=== PATIENT | female | born 1980 | race Caucasian/White ===

== ENCOUNTER 2022-05-26 16:35 | Inpatient (IN) ==
--- NOTE | 2022-05-26 17:43 | History & Physical Report ---
Date of Service May 26, 2022 Assessment & Plan (1) Non-reactive NST (non-stress test): Plan: Patient is a 41-year-old -0-2-0 at 38 weeks and 1 day gestation who was sent from office due to nonreactive NST, followed by BPP of 6 out of 10, Vital signs stable afebrile, heart rate is reassuring now with reactive NST with good variability and accelerations, We discussed options of induction of labor at term tonight versus prolonged monitoring and repeating BPP. Patient desires prolonged monitoring and repeat BP tonight and then go home if everything is reassuring. All questions were answered. (2) Advanced maternal age (AMA), 40 years or greater: (3) Gestational diabetes requiring insulin: History of Present Illness Primary Care Provider: Roland Anderson DO Patient is a 41-year-old -0-2-0 at 38 weeks and 1 day of gestation who was in the office for NST for high risk due to advanced maternal age and GDM A2, on insulin. NST was not reactive, with normal baseline, moderate variability, no decelerations but no accelerations meeting the criteria for reactivity. She then had ultrasound at the office for BPP, and it was 6 out of 8. And she was sent here. She states baby was not moving when they were doing NST and BPP in the office but now baby is very active moving and kicking. She denies contractions, leakage of fluid, vaginal bleeding. She was scheduled for induction of labor at 39 weeks. Since she has been here her NST is reactive and reassuring with normal baseline, accelerations present, moderate variability and no decelerations. I offered her induction of labor tonight but she is asking for other options. We discussed prolonged monitoring, given her diet and repeating BPP. If BPP is normal, reassuring then recommended to come back for NST in 2 days rather than waiting until office opens until May 30. Patient likes to do that. All questions were answered. Allergies Allergy/AdvReac Type Severity Reaction Status Date / Time lamotrigine [From Lamictal] Allergy Mild Hives Verified 07/26/20 18:12 [id number] Allergy Unknown Unknown Uncoded 07/26/20 18:12 Home Medications Medication Instructions Recorded Confirmed Type vit no.95-ferrous 1 tab PO DAILY 07/26/20 05/26/22 History fumarate 28 mg-folic acid 800 mcg tablet () sertraline 25 mg tablet 50 mg PO QAM 07/26/20 05/26/22 History omeprazole 20 mg capsule,delayed 20 mg PO DAILY 05/26/22 05/26/22 History release polyethylene glycol 3350 17 gram 17 g PO DAILY 05/26/22 05/26/22 History oral powder packet (Miralax) Patient History Medical History Bipolar 2 disorder Hx LEEP (loop electrosurgical excision procedure), cervix, Surgical History H/O colonoscopy H/O colposcopy with cervical biopsy H/O hemorrhoidectomy H/O myringotomy Hx of LASIK [place] teeth removed Family History Brother Diabetes Family history of GERD Father Diabetes Depression Grandfather (Maternal) Hypertension Sister Thyroid disorder Mother Anxiety disorder Melanoma FH: kidney cancer Social History Smoking Status: Never smoker Hx Alcohol Use: No Hx Substance Use: No Preferred Language: [place] Citizen Communication Ability: Effective 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 No adilia nor heart rate were seen. Review of Systems as per Subjective / HPI Physical Exam Genitourinary: normal external appearance OB Exam Abdomen: + vertex Manual OB Exam: + cervical dilation (0), + cervical effacement 50% and + station high (Ballotable head) OB Exam Monitor Tracing: + external uterine monitor used and + category I Results & Data ([facility]) Vital Signs (Past 12 Hours) Vital Signs Temp Pulse Resp BP 05/26/22 17:00 98 H 110/75 05/26/22 16:56 37.2 C 98 H 18 110/75
[2022-05-26] MEDS ORDERED: OXYTOCIN 30 UNITS/500 ML BAG IV PRN (19:13)
[2022-05-26] MEDS ORDERED: LIDOCAINE 1% LOCAL 20 ML VIAL INFIL PRN (19:13)
--- NOTE | 2022-05-26 19:17 | Obstetrical Progress Note ---
Date of Service May 26, 2022 Subjective Patient is reevaluated. Now she states baby is not moving much. Used to feel kicks but she does not feel any more. She says this has been going on for the last 2 to 3 days. Baby moved more when she came to here but then again slowed down. She has been waiting for [facility] for BPP but they have been busy in the ER and unable to come. I performed a bedside BPP which showed vertex presentation, anterior placenta, amniotic fluid volume normal, multiple breathing seen, 1 time of body flexion but no extremity movements. BPP is still borderline. After discussion of high risk and above findings recommended induction of labor now at term. Patient agrees with plan. Discussed about induction with cervical ripening with Cervidil and monitoring and she understands all. All questions were answered. Results & Data ([facility]) Vital Signs (Past 12 Hours) Vital Signs Temp Pulse Resp BP 05/26/22 18:56 88 116/72 05/26/22 17:00 98 H 110/75 05/26/22 16:56 37.2 C 98 H 18 110/75
--- NOTE | 2022-05-26 19:28 | Obstetrical Progress Note ---
Date of Service May 26, 2022 Subjective Patient states her disability will not start until May 28. If she has baby before that she will not be paid for leave. She does not want to go home she wants to be monitored but she is asking to start induction tomorrow instead of tonight. heart rate is category 1 with normal baseline, good accelerations, moderate variability, no decelerations. No contractions on the monitor. Patient has no complaints and feels well. We discussed the risks and benefits and after long discussion decided for observation overnight with monitoring and start induction of labor tomorrow. All questions were answered. Results & Data ([facility]) Vital Signs (Past 12 Hours) Vital Signs Temp Pulse Resp BP 05/26/22 18:56 88 116/72 05/26/22 17:00 98 H 110/75 05/26/22 16:56 37.2 C 98 H 18 110/75
[2022-05-26] MEDS ORDERED: DINOPROSTONE 10 MG INSERT PV ONE (19:30)
[2022-05-26 19:58] LABS: Hematocrit (blood only) 30.9 % (34.1-44.9); Hemoglobin 10.7 g/dl (12.0-16.0); Mean Corpuscular Hemoglobin 31.8 pg (25.0-34.0); Mean Corpuscular Hgb Conc 34.6 g/dL (32.0-36.0); Mean Corpuscular Volume 91.7 fL (80.0-100.0); Mean Platelet Volume 10.4 fL (9.4-12.3); Platelet Count 208 K/uL (130-400); RDW Coefficient of Variation 13.8 % (11.5-14.5); RDW Standard Deviation 46.5 fL (36.4-46.3); Red Blood Count 3.37 M/uL (3.93-5.22)
[2022-05-26 20:31] LABS: Albumin Globulin Ratio 1.1 (0.9-2); Albumin Level 3.3 gm/dl (3.4-5.0); BUN Creatinine Ratio 17.3 (10-20); Bilirubin,Total 0.3 mg/dl (0.2-1.0); Creatinine Clr Calc Pharmacy 60.2 ml/min; Est GFR (African American) 61.1 ml/min; Est GFR (Non-African American) 52.7 ml/min; Globulin 3.1 gm/dl (2.5-4.0); Potassium 3.8 mmol/L (3.5-5.1); Total Protein 6.4 gm/dl (6.0-8.3)
--- NOTE | 2022-05-26 20:33 | Ultrasound Report ---
US OB BPP wo NST single CLINICAL HISTORY: Non reactive nonstress test, BPP 6/8 in office COMPARISON STUDY: Obstetrical ultrasound 07/26/2020. FINDINGS: The fetus is in a cephalic presentation and demonstrates a heart rate of 159 BPM. Nor mal amniotic fluid adnexa of 11.54 cm. There is an anterior placenta noted. breathing, movement , and tone was identified during the examination. The ultrasound age is approximately 36 weeks and 3 days. IMPRESSION: Biophysical profile score is 8 out of 8. heart rate is 159 BPM. ACT 112: Negative or not required by law. Electronically signed by: Tobias Peñaloza M.D. 05/26/2022 8:31 PM
[2022-05-26] MEDS: LACTATED RINGER'S 1,000 ML IV PRN (20:34)
[2022-05-26] MEDS: LANTUS PER UNIT CHARGE SQ SCH (21:17)
[2022-05-27] MEDS: PANTOprazole 40 MG TAB PO SCH (07:50)
[2022-05-27] MEDS: SERTRALINE HCL 50 MG TABLET PO SCH (07:50)
[2022-05-27] MEDS: POLYETHYLENE (MIRALAX) 17 GM PACK PO SCH (07:50)
[2022-05-27] MEDS: FERROUS SULFATE 325 MG TAB PO SCH ×4 (07:50→18:28)
[2022-05-27] MEDS: LANTUS PER UNIT CHARGE SQ SCH ×3 (08:27→21:03)
[2022-05-27] MEDS: PRENATAL VITAMIN 1 TAB PO SCH (08:27)
--- NOTE | 2022-05-27 11:12 | Labor Progress Brief Note ---
Date of Service May 27, 2022 Assessment & Plan Admission and Anticipated Discharge Date Admission Date: May 26, 2022 Physical Exam Genitourinary: Manual OB Exam: + cervical dilation fingertip, + cervical effacement 50% and + station high OB Exam Monitor Tracing: + external FHT monitor used, + external uterine monitor used, + category I and + normal FHT variability Cervidil 10 mg placed vaginally Results & Data ([facility]) Vital Signs (Past 12 Hours) Vital Signs Temp Pulse Resp BP 05/27/22 07:28 36.8 C 20 05/27/22 07:24 71 107/65 05/27/22 04:50 18 05/27/22 04:50 36.6 C 18 05/27/22 04:38 71 96/56 L 05/27/22 00:04 18 05/27/22 00:04 18 05/27/22 00:06 74 103/58 L
[2022-05-27] MEDS: LACTATED RINGER'S 1,000 ML IV PRN (19:06)
[2022-05-28] MEDS: miSOPROStoL 50 MCG TAB PO SCH ×4 (03:06→17:22)
[2022-05-28] MEDS: FERROUS SULFATE 325 MG TAB PO SCH ×2 (09:01→17:28)
[2022-05-28] MEDS: PRENATAL VITAMIN 1 TAB PO SCH (09:01)
[2022-05-28] MEDS: SERTRALINE HCL 50 MG TABLET PO SCH (09:02)
[2022-05-28] MEDS: PANTOprazole 40 MG TAB PO SCH (09:02)
[2022-05-28] MEDS: POLYETHYLENE (MIRALAX) 17 GM PACK PO SCH (09:05)
[2022-05-28] MEDS: LANTUS PER UNIT CHARGE SQ SCH (09:11)
--- NOTE | 2022-05-28 10:13 | Labor Progress Brief Note ---
Date of Service May 28, 2022 Assessment & Plan Admission and Anticipated Discharge Date Admission Date: May 26, 2022 Physical Exam Genitourinary: Manual OB Exam: + cervical dilation fingertip, + cervical effacement 50% and + station (Crowley placed transcervically with 30 ml saline) high OB Exam Monitor Tracing: + external FHT monitor used, + external uterine monitor used, + category I and + normal FHT variability Results & Data ([facility]) Vital Signs (Past 12 Hours) Vital Signs Temp Pulse Resp BP 05/28/22 09:50 80 109/71 05/28/22 07:24 68 112/74 05/28/22 03:00 36.9 C 72 16 100/62 05/27/22 23:16 16 05/27/22 23:16 36.8 C 16 05/27/22 23:15 65 105/68
[2022-05-28] MEDS ORDERED: DINOPROSTONE 10 MG INSERT PV ONE (18:17)
[2022-05-28] MEDS ORDERED: miSOPROStoL 50 MCG TAB PO SCH (18:35)
[2022-05-28] MEDS ORDERED: TERBUTALINE SULFATE 1 MG/ML VIAL SQ ONE (19:42)
[2022-05-28] MEDS ORDERED: AZITHROMYCIN 500 MG in DEXTROSE 5% 250 ML IV ONE (19:55)
[2022-05-28] MEDS ORDERED: CITRIC ACID/SODIUM CITRATE 15 ML UDC ONE (19:56)
[2022-05-28] MEDS ORDERED: LACTATED RINGER'S 1,000 ML IV SCH ×2 (20:00→21:29)
--- NOTE | 2022-05-28 20:00 | Labor Progress Brief Note ---
Date of Service May 28, 2022 Assessment & Plan Admission and Anticipated Discharge Date Admission Date: May 26, 2022 Physical Exam Genitourinary: OB Exam Monitor Tracing: + external FHT monitor used, + external uterine monitor used, + category II and + normal FHT variability Patient with 8 minute episode of bradycardia. Will proceed with prinary C- section due to being remote from delivery. Results & Data ([facility]) Vital Signs (Past 12 Hours) Vital Signs Temp Pulse Resp BP Pulse Ox 05/28/22 19:52 125 H 100 05/28/22 19:47 115 H 100 05/28/22 19:42 97 H 100 05/28/22 19:39 93 H 92 05/28/22 19:37 105 H 97 05/28/22 19:07 64 107/60 05/28/22 18:01 37.0 C 68 20 99/57 L 05/28/22 14:41 84 105/64 05/28/22 12:09 20 05/28/22 12:09 36.6 C 20 05/28/22 12:10 71 105/68 05/28/22 09:50 36.8 C 80 20 109/71
[2022-05-28] MEDS ORDERED: MoRPHine SULFATE PF 1 MG/ML 10 ML AMP/VIAL INT SPINAL ONE (20:03)
[2022-05-28] MEDS ORDERED: NALOXONE HCL 0.4 MG/1 ML VIAL/CARP IV PRN (20:03)
[2022-05-28] MEDS ORDERED: NALOXONE HCL 1 MG in SODIUM CHLORIDE 0.9% 1000ML 1,000 ML IV PRN (20:03)
[2022-05-28] MEDS ORDERED: diphenhydrAMINE 50 MG/ML VIAL IV PRN (20:03)
[2022-05-28] MEDS ORDERED: ONDANSETRON INJ 2 MG/ML 2 ML VIAL IV PRN (20:03)
[2022-05-28] MEDS ORDERED: HYDROmorphone INJ 0.5 MG/0.5 ML SYR IV PRN (20:03)
[2022-05-28] MEDS ORDERED: NALBUPHINE HCL INJ 10 MG/ML AMP IV PRN (20:03)
[2022-05-28] MEDS ORDERED: ePHEDrine sulfate 50 MG/ML AMP IV PRN (20:03)
[2022-05-28] MEDS ORDERED: LACTATED RINGER'S 500 ML IV PRN (20:03)
[2022-05-28] MEDS ORDERED: NALOXONE HCL 0.08 MG in SYRINGE 1.8 ML IV PRN (20:03)
--- NOTE | 2022-05-28 20:03 | Anesthesiology Consultation ---
Date of Service May 28, 2022 Called patient with FHR in the 60s. Since that time FHR has come up. Dr. Adorno states patient is okay for spinal anesthetic. Assessment & Plan Chart Review Chart Review: Acceptable Risk for Surgery and Patient NOT seen in Pre Admission Testing Consults Requested none ASA [id number] Proposed Anesthesia Anesthesia Type: MAC Spinal Risk / Benefits Reviewed With: PT / POA / Parent / Guardian, Accepts Plan and Informed Consent Obtained History Surgery Operation Date: 05/28/22 20:00 Proposed Procedures p Section in LD - Evin Adorno MD Height/Weight Height: 5 ft 2 in Weight: 86.636 kg Allergies Allergy/AdvReac Type Severity Reaction Status Date / Time lamotrigine [From Lamictal] Allergy Mild Hives Verified 07/26/20 18:12 pollen extracts Allergy Congested Verified 05/28/22 19:13 ragweed pollen Allergy Congested Verified 05/28/22 19:13 Medications Home Medications Medication Instructions Recorded Confirmed Last Taken vit no.95-ferrous 1 tab PO DAILY 07/26/20 05/26/22 05/26/22 fumarate 28 mg-folic acid 800 mcg tablet () sertraline 25 mg tablet 50 mg PO QAM 07/26/20 05/26/22 05/26/22 omeprazole 20 mg capsule,delayed 20 mg PO DAILY 05/26/22 05/26/22 05/26/22 release polyethylene glycol 3350 17 gram 17 g PO DAILY 05/26/22 05/26/22 05/26/22 oral powder packet (Miralax) Active Medications Generic Name Dose Route Start Last Admin Trade Name Kane PRN Reason Stop Dose Admin Ferrous Sulfate 325 mg 05/26/22 20:45 05/28/22 17:28 Ferrous Sulfate 325 Mg Tab PO 06/25/22 20:44 325 mg BIDM SARATH Administration Insulin Glargine 25 units 05/26/22 21:00 05/27/22 21:03 Lantus Per Unit Charge SQ 06/25/22 20:59 25 units HS SARATH Administration Insulin Glargine 10 units 05/27/22 08:00 05/28/22 09:11 Lantus Per Unit Charge SQ 06/26/22 07:59 10 units DAILY SARATH Administration Misoprostol 50 mcg 05/28/22 18:35 05/28/22 19:04 Misoprostol 50 Mcg Tab PO 06/27/22 18:34 50 mcg Q4 SARATH Administration Pantoprazole Sodium 40 mg 05/27/22 09:00 05/28/22 09:02 Pantoprazole 40 Mg Tab PO 06/26/22 08:59 40 mg DAILY SARATH Administration Polyethylene Glycol 17 gm 05/27/22 09:00 05/28/22 09:05 Polyethylene (Miralax) 17 Gm Pack PO 06/26/22 08:59 17 gm DAILY SARATH Administration Prenat Multivit/Sexual Assault Response Coordinator/Iron/Folic Ac 1 tab 05/27/22 09:00 05/28/22 09:01 Vitamin 1 Tab PO 06/26/22 08:59 1 tab DAILY SARATH Administration Sertraline HCl 50 mg 05/27/22 09:00 05/28/22 09:02 Sertraline Hcl 50 Mg Tablet PO 06/26/22 08:59 50 mg QAM SARATH Administration NPO Date Last Intake of Fluids: 05/28/22 Time Last Intake of Fluids: 17:30 Date Last Intake of Solids: 05/28/22 Time Last Intake of Solids: 17:30 Last Intake of Solids Comment: roast beef Past Medical History Medical History Anemia Anxiety Bipolar 2 disorder Depression Gestational diabetes insulin controlled Hx LEEP (loop electrosurgical excision procedure), cervix, Two vessel umbilical cord Exercise / Class Metabolic Activity II 4-5 Yardwork/Stairs/Walk up hill Past Family History Family History Brother Diabetes Family history of GERD Father Diabetes Depression Grandfather (Maternal) Hypertension Sister Thyroid disorder Mother Anxiety disorder Melanoma FH: kidney cancer Past Surgical History Surgical History H/O colonoscopy H/O colposcopy with cervical biopsy H/O hemorrhoidectomy H/O LEEP 2012 H/O myringotomy Hx of LASIK [place] teeth removed Past Anesthesia History No Hx of Anesthesia Complications and No Family Hx of Anesthesia Complications Social History Smoking Status: Never smoker Hx Alcohol Use: No Hx Substance Use: No Review of Systems no chest pain or sob Physical Exam Vital Signs Last Vital Signs Temp 37.0 C 05/28/22 18:01 Pulse 160 H 05/28/22 19:57 Resp 20 05/28/22 18:01 BP 107/60 05/28/22 19:07 Pulse Ox 99 05/28/22 19:57 O2 Del Method 05/27/22 19:05 Constitutional + obese ENMT Mouth: no TMJ abnormality Thyromental Distance: > or= 3.5 Finger Breadths Mallampati Class: II Neck normal visual inspection Respiratory normal respiratory effort Auscultation: lungs clear to auscultation bilaterally Cardiovascular Rate/Rhythm: regular rate and regular rhythm Musculoskeletal Spine: normal cervical ROM Neurologic moves all extremities Psychiatric Orientation: alert and oriented x 3 Testing Laboratory Results 05/26/22 19:38 05/26/22 19:38 05/28/22 05/28/22 05/28/22 18:30 14:01 13:31 POC Glucose 96 98 79 05/28/22 09:09 POC Glucose 161 H
[2022-05-28] MEDS ORDERED: MoRPHine SULFATE PF 1 MG/ML 10 ML AMP/VIAL ONE (20:05)
[2022-05-28] MEDS ORDERED: fentaNYL citrate 100 MCG/2 ML VIAL ONE (20:06)
[2022-05-28] MEDS ORDERED: SODIUM CHLORIDE 0.9% 1000ML 1,000 ML IV SCH (20:15)
[2022-05-28] MEDS ORDERED: NO NARCOTICS OR SEDATIVES SCH (20:15)
[2022-05-28] MEDS ORDERED: DC INTRASPINAL MORPHINE SCH (20:15)
[2022-05-28] MEDS ORDERED: ONDANSETRON INJ 2 MG/ML 2 ML VIAL ONE (20:23)
[2022-05-28] MEDS ORDERED: PHENYLEPHRINE 100MCG/ML 5ML SYR ONE (20:23)
[2022-05-28] MEDS ORDERED: OXYTOCIN 10 UNITS/ML 10ML VIAL ONE (20:23)
--- NOTE | 2022-05-28 21:20 | Post Operative Brief Note ---
Immediate Post Op Note v1 Date of Surgery May 28, 2022 Pre & Post Diagnosis Operation Date: 05/28/22 20:00 Pre-Op Diagnosis: primary caesarean section for non reassuring heart tones failed induction Post-Op Diagnosis: same as pre op I identified the patient and participated in the time-out.: Yes Procedure Operation Date: 05/28/22 20:00 Actual Procedures p Section in LD - Evin Adorno MD Surgeon Evin Adorno MD Analytical Engineer Dr. Myrick Estimated Blood Loss 400 Findings Consistent with Post-Op Diagnosis live male Apgars 8/9 Fluids LR 1200 ml Specimens placenta Anesthesia Type Spinal Complications none Disposition Accompanied Patient To Recovery: Yes Overlapping Procedure I was present for: the critical portions of procedure. I was immediately available: during the entire case. Back up surgeon: used during listed procedure.
[2022-05-28] MEDS ORDERED: DIPHTHERIA/TETANUS/PERTUSSIS 0.5 ML SYR/VIAL IM ONE (21:29)
[2022-05-28] MEDS ORDERED: MAGNESIUM HYDROXIDE SUSP 30 ML UDC PO PRN (21:29)
[2022-05-28] MEDS ORDERED: HYDROCORTISONE ACETATE 25 MG SUPP PR PRN (21:29)
[2022-05-28] MEDS ORDERED: BENZOCAINE 20% AER SPR 82.5 GM CAN EXT PRN (21:29)
[2022-05-28] MEDS ORDERED: SENNA 8.6 MG TAB PO PRN (21:29)
--- NOTE | 2022-05-28 21:34 | Anesthesiology Progress Note ---
Date of Service May 28, 2022 Anesthesia Post Procedure Vital Signs Vital Signs: Temp Pulse Resp BP Pulse Ox 05/28/22 21:32 100 05/28/22 21:32 76 05/28/22 21:32 74 108/51 L 05/28/22 21:27 86 100 05/28/22 21:22 99 05/28/22 21:22 82 05/28/22 21:22 77 113/56 L 05/28/22 21:17 86 99 05/28/22 21:15 86 112/56 L 05/28/22 21:12 86 100 05/28/22 19:57 160 H 99 05/28/22 19:52 125 H 100 05/28/22 19:47 115 H 100 05/28/22 19:42 97 H 100 05/28/22 19:39 93 H 92 05/28/22 19:37 105 H 97 05/28/22 19:07 64 107/60 05/28/22 18:01 37.0 C 68 20 99/57 L 05/28/22 14:41 84 105/64 05/28/22 12:09 20 05/28/22 12:09 36.6 C 20 05/28/22 12:10 71 105/68 05/28/22 09:50 36.8 C 80 20 109/71 05/28/22 07:24 68 112/74 05/28/22 03:00 36.9 C 72 16 100/62 05/27/22 23:16 16 05/27/22 23:16 36.8 C 16 05/27/22 23:15 65 105/68 Transfer of Care Handoff Completed per policy Notes Mental Status: alert / awake / arousable Patient Amnestic to Procedure: Yes Nausea / Vomiting: adequately controlled Pain: adequately controlled Airway Patency, RR, SpO2: stable & adequate BP & HR: stable & adequate Hydration State: stable & adequate Neuraxial Anesthesia: was administered and sensory block is resolving Anesthetic Complications: no major complications apparent and Pt Satisfied with anesthetic care
[2022-05-28] MEDS: OXYTOCIN 20 UNITS in LACTATED RINGER'S 1,000 ML IV SCH (22:21)
--- NOTE | 2022-05-28 22:28 | Operative Report (OR) ---
DATE OF SURGERY: 05/28/2022. PREOPERATIVE DIAGNOSES: Nonreassuring heart tones, gestational diabetes requiring insulin, and advanced maternal age. POSTOPERATIVE DIAGNOSES: Nonreassuring heart tones, gestational diabetes requiring insulin, an d advanced maternal age. SURGEON: Evin Adorno MD. PHYSICAL THERAPIST: Dimas Myrick MD ANESTHESIA: Spinal. COMPLICATIONS: None. FINDINGS: Live male, Apgars 6 and 8, weight 6 pounds 6.8 ounces. TOTAL FLUIDS: 1200 mL. TOTAL URINE OUTPUT: 330 mL. ESTIMATED BLOOD LOSS: 400 mL. FINDINGS: Live male as above. SPECIMENS: Placenta. DRAINS: Crowley. CLINICAL HISTORY: The patient is a 41-year-old female, 3, para 0-0-2-0, at 38 weeks and 1 da y, admitted for induction of labor after having a nonreactive NST in the office followed by a biophys ical profile of 6 out of 10. Because the patient had a nonreactive NST, a biophysical induction was r ecommended. The patient had 2 days of ripening with Cervidil followed by Cytotec and a Crowley balloon . The patient did not progress beyond fingertip dilation. The patient had a prior LEEP cone biopsy in the past. She had an 8-minute run of bradycardic activity with the fetus dipping down into the 60 s and 80s persistent despite receiving terbutaline. Decision was made due to the fact that the patie nt was remote from delivery and an unripe cervix to proceed with a section. Spinal anesthes ia was planned and antibiotics were given preop and a timeout was called prior to the start of the pr ocedure. DESCRIPTION OF PROCEDURE: Under satisfactory spinal anesthesia with Duramorph, the patient was prepp ed and draped in the usual sterile fashion. A low Pfannenstiel incision was made, carrying the incis ion down in successive layers without difficulty entering into the abdominal cavity without difficult y. Upon entering into the peritoneal cavity, the Gallo retractor was placed for retraction. Bladde r flap was then made with sharp dissection using Metzenbaum scissors. A low segment transverse incis ion over the lower uterine segment was made. The incision was nicked. Amniotic sac was clear. The incision was widened in the AP diameter. The was then delivered from the vertex presentation through the incision with the aid of fundal pressure. The cord was doubly clamped and cut after a 1 minute delay. Apgars were 6 and 8, weight 6 pounds 6.8 ounces. There was a shoulder cord and a cord by the head. There was a, 2-vessel cord noted as well. Cord blood was obtained. Placenta del ivered spontaneously and intact. The uterus was then exteriorized. Ring forceps were then placed on both angles in the inferior josué n. Uterus was closed in double layer closure with 0 Vicryl suture in a continuous interlocking fashi on followed by second imbricating suture. No active bleeding was noted. Tubes, ovaries bilaterally were found to be within normal limits. The contents of the pelvic and abdominal cavity were then irr igated to clear. The Gallo retractor was then removed. The uterus was placed back into the normal anatomical position. The fascia was reapproximated from both ends using 0 Vicryl suture in a continu ous fashion. Subcuticular space was then irrigated. The subcuticular layer was then closed with 3-0 plain suture, interrupted, followed by lyly for skin, and KAM dressing and ABD dressing on top o f that. No active bleeding at the end of the procedure. The final sponge, needle and instrument coun t were found to be correct. Please note the attestation that Dr. Myrick was here and necessary for providing exposure for abdomina l retraction, delivery of the head, closure of the uterus and closure of the abdomen. The alberto ent was then placed supine on a stretcher. She was taken to the recovery room in stable condition. Job ID: [id number]
[2022-05-28] MEDS: KETOROLAC 30 MG/ML VIAL IV PRN (23:30)
[2022-05-29] MEDS ORDERED: CITRIC ACID/SODIUM CITRATE 15 ML UDC PO SCH (06:00)
[2022-05-29] MEDS: SIMETHICONE 80 MG CHEW PO SCH ×4 (09:04→21:02)
[2022-05-29] MEDS: PANTOprazole 40 MG TAB PO SCH (09:04)
[2022-05-29] MEDS: FERROUS SULFATE 325 MG TAB PO SCH (09:04)
[2022-05-29] MEDS: DOCUSATE SODIUM 100 MG CAP PO SCH ×2 (09:04→21:02)
[2022-05-29] MEDS: SERTRALINE HCL 50 MG TABLET PO SCH (09:04)
[2022-05-29] MEDS: PRENATAL VITAMIN 1 TAB PO SCH (09:04)
[2022-05-29] MEDS: KETOROLAC 30 MG/ML VIAL IV PRN (09:05)
--- NOTE | 2022-05-29 09:13 | Obstetrical Progress Note ---
Date of Service May 29, 2022 Assessment & Plan Admission and Anticipated Discharge Date Admission Date: May 26, 2022 Subjective Patient is seen and examined. She feels well, no complaints. Pain is under control with IV meds. Not OOB yet. Bleeding is minimal No fever/ chills/ CP/ SOB/ N&V/ Leg pain Breast feeding without problems Vital Signs Temp Pulse Pulse Resp BP BP BP 05/29/22 08:00 36.4 C L 75 18 94/56 L 05/29/22 08:00 18 05/29/22 07:00 18 05/29/22 05:49 18 05/29/22 05:00 18 05/29/22 04:00 18 05/29/22 03:00 18 05/29/22 02:00 18 05/29/22 01:00 18 05/29/22 05:01 36.9 C 69 18 106/64 05/29/22 00:45 37.1 C 78 18 104/62 05/29/22 00:45 18 05/28/22 22:10 94 H 20 05/28/22 22:02 94 H 18 05/28/22 21:52 94 H 20 05/28/22 21:42 94 H 18 05/28/22 21:32 94 H 18 05/28/22 22:40 81 05/28/22 21:22 94 H 20 05/28/22 21:15 37.0 C 18 05/28/22 21:15 74 106/56 L 05/29/22 00:32 79 05/29/22 00:27 81 05/29/22 00:22 79 05/29/22 00:17 83 05/29/22 00:12 80 05/29/22 00:07 79 05/29/22 00:02 78 05/28/22 23:57 83 05/28/22 23:52 84 05/28/22 23:47 76 05/28/22 23:42 76 05/28/22 23:37 78 05/28/22 23:32 81 05/28/22 23:28 75 94/53 L 05/28/22 23:27 80 05/28/22 23:22 85 05/28/22 23:17 85 05/28/22 23:12 05/28/22 23:12 85 05/28/22 23:12 82 105/59 L 05/28/22 23:07 88 05/28/22 23:02 05/28/22 23:02 89 05/28/22 23:02 86 106/57 L 05/28/22 22:57 94 H 05/28/22 22:52 87 109/63 05/28/22 22:47 93 H 05/28/22 22:42 05/28/22 22:42 94 H 05/28/22 22:42 97 H 111/63 05/28/22 22:37 81 05/28/22 22:32 05/28/22 22:32 91 H 05/28/22 22:32 84 118/66 05/28/22 22:27 91 H 05/28/22 22:22 91 H 106/64 05/28/22 22:19 86 109/64 05/28/22 22:17 89 05/28/22 22:12 94 H 05/28/22 22:07 90 05/28/22 22:02 96 H 05/28/22 22:03 99 H 184/68 H 05/28/22 22:01 90 05/28/22 21:57 84 05/28/22 21:52 05/28/22 21:52 74 05/28/22 21:52 82 106/56 L 05/28/22 21:47 79 05/28/22 21:42 73 106/56 L 05/28/22 21:37 80 05/28/22 21:32 05/28/22 21:32 76 05/28/22 21:32 74 108/51 L 05/28/22 21:27 86 05/28/22 21:22 05/28/22 21:22 82 05/28/22 21:22 77 113/56 L 05/28/22 21:17 86 05/28/22 21:15 86 112/56 L Pulse Ox O2 Del Method 05/29/22 08:00 98 Room Air 05/29/22 08:00 98 05/29/22 07:00 96 05/29/22 05:49 97 05/29/22 05:00 95 05/29/22 04:00 96 05/29/22 03:00 96 05/29/22 02:00 95 05/29/22 01:00 96 05/29/22 05:01 05/29/22 00:45 99 Room Air 05/29/22 00:45 99 05/28/22 22:10 98 05/28/22 22:02 98 05/28/22 21:52 98 05/28/22 21:42 98 05/28/22 21:32 98 05/28/22 22:40 97 05/28/22 21:22 98 05/28/22 21:15 05/28/22 21:15 100 05/29/22 00:32 100 05/29/22 00:27 100 05/29/22 00:22 98 05/29/22 00:17 99 05/29/22 00:12 99 05/29/22 00:07 99 05/29/22 00:02 99 05/28/22 23:57 97 05/28/22 23:52 99 05/28/22 23:47 97 05/28/22 23:42 98 05/28/22 23:37 97 05/28/22 23:32 98 05/28/22 23:28 05/28/22 23:27 98 05/28/22 23:22 97 05/28/22 23:17 96 05/28/22 23:12 97 05/28/22 23:12 05/28/22 23:12 05/28/22 23:07 97 05/28/22 23:02 97 05/28/22 23:02 05/28/22 23:02 05/28/22 22:57 97 05/28/22 22:52 97 05/28/22 22:47 98 05/28/22 22:42 98 05/28/22 22:42 05/28/22 22:42 05/28/22 22:37 97 05/28/22 22:32 98 05/28/22 22:32 05/28/22 22:32 05/28/22 22:27 97 05/28/22 22:22 98 05/28/22 22:19 05/28/22 22:17 97 05/28/22 22:12 98 05/28/22 22:07 98 05/28/22 22:02 95 05/28/22 22:03 05/28/22 22:01 91 05/28/22 21:57 98 05/28/22 21:52 100 05/28/22 21:52 05/28/22 21:52 05/28/22 21:47 98 05/28/22 21:42 100 05/28/22 21:37 100 05/28/22 21:32 100 05/28/22 21:32 05/28/22 21:32 05/28/22 21:27 100 05/28/22 21:22 99 05/28/22 21:22 05/28/22 21:22 05/28/22 21:17 99 05/28/22 21:15 Lab Results 05/26/22 05/26/22 05/26/22 Range/Units 19:38 19:38 20:05 WBC 13.90 H (4.8-10.8) K/ul RBC 3.37 L (3.93-5.22) M/uL Hgb 10.7 L (12.0-16.0) g/dl Hct 30.9 L (34.1-44.9) % MCV 91.7 (80.0-100.0) fL MCH 31.8 (25.0-34.0) pg MCHC 34.6 (32.0-36.0) g/dL RDW Std Deviation 46.5 H (36.4-46.3) fL RDW Coeff of Junior 13.8 (11.5-14.5) % Plt Count 208 (130-400) K/uL MPV 10.4 (9.4-12.3) fL Sodium 136 (136-145) mmol/L Potassium 3.8 (3.5-5.1) mmol/L Chloride 106 (98-107) mmol/L Carbon Dioxide 22 (21-32) mmol/L Anion Gap 8 (3-11) BUN 22 (6-23) mg/dl Creatinine 1.27 H (0.6-1.2) mg/dl Est Cr Clr Drug Dosing 60.2 ml/min Est GFR ( Amer) 61.1 ml/min Est GFR (Non-Af Amer) 52.7 ml/min BUN/Creatinine Ratio 17.3 (10-20) Glucose 114 H (70-99(Fasting)) mg/dl POC Glucose (70-99) mg/dl Calcium 9.0 (8.5-10.1) mg/dl Total Bilirubin 0.3 (0.2-1.0) mg/dl AST 16 (13-39) U/L ALT 24 (7-52) U/L Alkaline Phosphatase 93 (34-104) U/L Total Protein 6.4 (6.0-8.3) gm/dl Albumin 3.3 L (3.4-5.0) gm/dl Globulin 3.1 (2.5-4.0) gm/dl Albumin/Globulin Ratio 1.1 (0.9-2) SARS-CoV-2, RNA, NAAT NEGATIVE (NEGATIVE) 05/26/22 05/27/22 05/27/22 Range/Units 21:17 07:59 12:01 WBC (4.8-10.8) K/ul RBC (3.93-5.22) M/uL Hgb (12.0-16.0) g/dl Hct (34.1-44.9) % MCV (80.0-100.0) fL MCH (25.0-34.0) pg MCHC (32.0-36.0) g/dL RDW Std Deviation (36.4-46.3) fL RDW Coeff of Junior (11.5-14.5) % Plt Count (130-400) K/uL MPV (9.4-12.3) fL Sodium (136-145) mmol/L Potassium (3.5-5.1) mmol/L Chloride (98-107) mmol/L Carbon Dioxide (21-32) mmol/L Anion Gap (3-11) BUN (6-23) mg/dl Creatinine (0.6-1.2) mg/dl Est Cr Clr Drug Dosing ml/min Est GFR ( Amer) ml/min Est GFR (Non-Af Amer) ml/min BUN/Creatinine Ratio (10-20) Glucose (70-99(Fasting)) mg/dl POC Glucose 95 76 86 (70-99) mg/dl Calcium (8.5-10.1) mg/dl Total Bilirubin (0.2-1.0) mg/dl AST (13-39) U/L ALT (7-52) U/L Alkaline Phosphatase (34-104) U/L Total Protein (6.0-8.3) gm/dl Albumin (3.4-5.0) gm/dl Globulin (2.5-4.0) gm/dl Albumin/Globulin Ratio (0.9-2) SARS-CoV-2, RNA, NAAT (NEGATIVE) 05/27/22 05/27/22 05/28/22 Range/Units 18:48 21:00 09:09 WBC (4.8-10.8) K/ul RBC (3.93-5.22) M/uL Hgb (12.0-16.0) g/dl Hct (34.1-44.9) % MCV (80.0-100.0) fL MCH (25.0-34.0) pg MCHC (32.0-36.0) g/dL RDW Std Deviation (36.4-46.3) fL RDW Coeff of Junior (11.5-14.5) % Plt Count (130-400) K/uL MPV (9.4-12.3) fL Sodium (136-145) mmol/L Potassium (3.5-5.1) mmol/L Chloride (98-107) mmol/L Carbon Dioxide (21-32) mmol/L Anion Gap (3-11) BUN (6-23) mg/dl Creatinine (0.6-1.2) mg/dl Est Cr Clr Drug Dosing ml/min Est GFR ( Amer) ml/min Est GFR (Non-Af Amer) ml/min BUN/Creatinine Ratio (10-20) Glucose (70-99(Fasting)) mg/dl POC Glucose 114 H 126 H 161 H (70-99) mg/dl Calcium (8.5-10.1) mg/dl Total Bilirubin (0.2-1.0) mg/dl AST (13-39) U/L ALT (7-52) U/L Alkaline Phosphatase (34-104) U/L Total Protein (6.0-8.3) gm/dl Albumin (3.4-5.0) gm/dl Globulin (2.5-4.0) gm/dl Albumin/Globulin Ratio (0.9-2) SARS-CoV-2, RNA, NAAT (NEGATIVE) 05/28/22 05/28/22 05/28/22 Range/Units 13:31 14:01 18:30 WBC (4.8-10.8) K/ul RBC (3.93-5.22) M/uL Hgb (12.0-16.0) g/dl Hct (34.1-44.9) % MCV (80.0-100.0) fL MCH (25.0-34.0) pg MCHC (32.0-36.0) g/dL RDW Std Deviation (36.4-46.3) fL RDW Coeff of Junior (11.5-14.5) % Plt Count (130-400) K/uL MPV (9.4-12.3) fL Sodium (136-145) mmol/L Potassium (3.5-5.1) mmol/L Chloride (98-107) mmol/L Carbon Dioxide (21-32) mmol/L Anion Gap (3-11) BUN (6-23) mg/dl Creatinine (0.6-1.2) mg/dl Est Cr Clr Drug Dosing ml/min Est GFR ( Amer) ml/min Est GFR (Non-Af Amer) ml/min BUN/Creatinine Ratio (10-20) Glucose (70-99(Fasting)) mg/dl POC Glucose 79 98 96 (70-99) mg/dl Calcium (8.5-10.1) mg/dl Total Bilirubin (0.2-1.0) mg/dl AST (13-39) U/L ALT (7-52) U/L Alkaline Phosphatase (34-104) U/L Total Protein (6.0-8.3) gm/dl Albumin (3.4-5.0) gm/dl Globulin (2.5-4.0) gm/dl Albumin/Globulin Ratio (0.9-2) SARS-CoV-2, RNA, NAAT (NEGATIVE) PE: General: Alert, orientedx3, NAD CVS: S1S2 RRR Lungs; CTAB Abd: soft, NT, ND, BS+, fundus firm, below Umbilicus Incision/ KAM dressing: Clean, dry, intact Perineum intact, Lochia rubra minimal Ext; NT, no edema AP: 41 yo s/p C Section, pod# 1 VSS Afebrile doing well Continue routine postop care Encourage ambulation, PO intake All questions were answered Results & Data ([facility]) Vital Signs (Past 12 Hours) Vital Signs Temp Pulse Pulse Resp BP BP BP 05/29/22 08:00 36.4 C L 75 18 94/56 L 05/29/22 08:00 18 05/29/22 07:00 18 05/29/22 05:49 18 05/29/22 05:00 18 05/29/22 04:00 18 05/29/22 03:00 18 05/29/22 02:00 18 05/29/22 01:00 18 05/29/22 05:01 36.9 C 69 18 106/64 05/29/22 00:45 37.1 C 78 18 104/62 05/29/22 00:45 18 05/28/22 22:10 94 H 20 05/28/22 22:02 94 H 18 05/28/22 21:52 94 H 20 05/28/22 21:42 94 H 18 05/28/22 21:32 94 H 18 05/28/22 22:40 81 05/28/22 21:22 94 H 20 05/28/22 21:15 37.0 C 18 05/28/22 21:15 74 106/56 L 05/29/22 00:32 79 05/29/22 00:27 81 05/29/22 00:22 79 05/29/22 00:17 83 05/29/22 00:12 80 05/29/22 00:07 79 05/29/22 00:02 78 05/28/22 23:57 83 05/28/22 23:52 84 05/28/22 23:47 76 05/28/22 23:42 76 05/28/22 23:37 78 05/28/22 23:32 81 05/28/22 23:28 75 94/53 L 05/28/22 23:27 80 05/28/22 23:22 85 05/28/22 23:17 85 05/28/22 23:12 05/28/22 23:12 85 05/28/22 23:12 82 105/59 L 05/28/22 23:07 88 05/28/22 23:02 05/28/22 23:02 89 05/28/22 23:02 86 106/57 L 05/28/22 22:57 94 H 05/28/22 22:52 87 109/63 05/28/22 22:47 93 H 05/28/22 22:42 05/28/22 22:42 94 H 05/28/22 22:42 97 H 111/63 05/28/22 22:37 81 05/28/22 22:32 05/28/22 22:32 91 H 05/28/22 22:32 84 118/66 05/28/22 22:27 91 H 05/28/22 22:22 91 H 106/64 05/28/22 22:19 86 109/64 05/28/22 22:17 89 05/28/22 22:12 94 H 05/28/22 22:07 90 05/28/22 22:02 96 H 05/28/22 22:03 99 H 184/68 H 05/28/22 22:01 90 05/28/22 21:57 84 05/28/22 21:52 05/28/22 21:52 74 05/28/22 21:52 82 106/56 L 05/28/22 21:47 79 05/28/22 21:42 73 106/56 L 05/28/22 21:37 80 05/28/22 21:32 05/28/22 21:32 76 05/28/22 21:32 74 108/51 L 05/28/22 21:27 86 05/28/22 21:22 05/28/22 21:22 82 05/28/22 21:22 77 113/56 L 05/28/22 21:17 86 05/28/22 21:15 86 112/56 L 05/28/22 21:12 86 Pulse Ox O2 Del Method 05/29/22 08:00 98 Room Air 05/29/22 08:00 98 05/29/22 07:00 96 05/29/22 05:49 97 05/29/22 05:00 95 05/29/22 04:00 96 05/29/22 03:00 96 05/29/22 02:00 95 05/29/22 01:00 96 05/29/22 05:01 05/29/22 00:45 99 Room Air 05/29/22 00:45 99 05/28/22 22:10 98 05/28/22 22:02 98 05/28/22 21:52 98 05/28/22 21:42 98 05/28/22 21:32 98 05/28/22 22:40 97 05/28/22 21:22 98 05/28/22 21:15 05/28/22 21:15 100 05/29/22 00:32 100 05/29/22 00:27 100 05/29/22 00:22 98 05/29/22 00:17 99 05/29/22 00:12 99 05/29/22 00:07 99 05/29/22 00:02 99 05/28/22 23:57 97 05/28/22 23:52 99 05/28/22 23:47 97 05/28/22 23:42 98 05/28/22 23:37 97 05/28/22 23:32 98 05/28/22 23:28 05/28/22 23:27 98 05/28/22 23:22 97 05/28/22 23:17 96 05/28/22 23:12 97 05/28/22 23:12 05/28/22 23:12 05/28/22 23:07 97 05/28/22 23:02 97 05/28/22 23:02 05/28/22 23:02 05/28/22 22:57 97 05/28/22 22:52 97 05/28/22 22:47 98 05/28/22 22:42 98 05/28/22 22:42 05/28/22 22:42 05/28/22 22:37 97 05/28/22 22:32 98 05/28/22 22:32 05/28/22 22:32 05/28/22 22:27 97 05/28/22 22:22 98 05/28/22 22:19 05/28/22 22:17 97 05/28/22 22:12 98 05/28/22 22:07 98 05/28/22 22:02 95 05/28/22 22:03 05/28/22 22:01 91 05/28/22 21:57 98 05/28/22 21:52 100 05/28/22 21:52 05/28/22 21:52 05/28/22 21:47 98 05/28/22 21:42 100 05/28/22 21:37 100 05/28/22 21:32 100 05/28/22 21:32 05/28/22 21:32 05/28/22 21:27 100 05/28/22 21:22 99 05/28/22 21:22 05/28/22 21:22 05/28/22 21:17 99 05/28/22 21:15 05/28/22 21:12 100
[2022-05-29] MEDS ORDERED: Nursing to Pharmacy Communication SCH (09:30)
[2022-05-29 09:41] LABS: Basophils # (auto) 0.04 K/uL (0-0.2); Basophils % (auto) 0.3 %; Eosinophils % (auto) 0.7 %; Hematocrit (blood only) 28.3 % (34.1-44.9); Hemoglobin 9.8 g/dl (12.0-16.0); Immature Granulocytes # (auto) 0.21 K/uL (0.00-0.02); Immature Granulocytes % (auto) 1.5 %; Lymphocytes # (auto) 1.83 K/uL (1.2-3.4); Lymphocytes % (auto) 13.2 %; Mean Corpuscular Hemoglobin 31.9 pg (25.0-34.0); Mean Corpuscular Hgb Conc 34.6 g/dL (32.0-36.0); Mean Corpuscular Volume 92.2 fL (80.0-100.0); Mean Platelet Volume 10.3 fL (9.4-12.3); Monocytes # (auto) 0.89 K/uL (0.24-0.82); Monocytes % (auto) 6.4 %; Neutrophils # (auto) 10.79 K/uL (1.4-6.5); Neutrophils % (auto) 77.9 %; Platelet Count 174 K/uL (130-400); RDW Coefficient of Variation 13.8 % (11.5-14.5); RDW Standard Deviation 46.5 fL (36.4-46.3); Red Blood Count 3.07 M/uL (3.93-5.22); White Blood Count 13.86 K/ul (4.8-10.8)
[2022-05-29] MEDS: OXYTOCIN 20 UNITS in LACTATED RINGER'S 1,000 ML IV SCH (11:17)
[2022-05-29] MEDS ORDERED: MEPERIDINE HCL 50 MG/ML CARP IV PRN (14:04)
[2022-05-29] MEDS ORDERED: KETOROLAC 30 MG/ML VIAL IV PRN (14:04)
[2022-05-29] MEDS ORDERED: PROMETHAZINE HCL 25 MG in SODIUM CHLORIDE 0.9% 50 ML IV PRN (14:04)
[2022-05-29] MEDS ORDERED: diphenhydrAMINE 50 MG/ML VIAL IV PRN (14:04)
[2022-05-29] MEDS ORDERED: diphenhydrAMINE Capsule 25 MG CAP PO PRN (14:04)
[2022-05-29] MEDS ORDERED: ONDANSETRON INJ 2 MG/ML 2 ML VIAL IV PRN (14:04)
[2022-05-29] MEDS: POLYETHYLENE (MIRALAX) 17 GM PACK PO SCH (15:02)
[2022-05-29] MEDS: oxyCODONE/ACETAMINOPHEN 5mg/325mg TAB PO PRN (18:30)
[2022-05-29] MEDS: IBUPROFEN 600 MG TAB PO PRN (18:30)
[2022-05-29] MEDS ORDERED: bisacodyL 5 MG TABEC PO SCH (20:00)
[2022-05-29] MEDS ORDERED: bisacodyL 5 MG TABEC PO ONE (22:26)
[2022-05-30] MEDS ORDERED: bisacodyL 10 MG SUPP PR PRN
[2022-05-30] MEDS: IBUPROFEN 600 MG TAB PO PRN ×4 (02:44→17:58)
[2022-05-30] MEDS: oxyCODONE/ACETAMINOPHEN 5mg/325mg TAB PO PRN ×4 (02:44→17:58)
[2022-05-30 07:31] LABS: Hematocrit (blood only) 27.4 % (34.1-44.9); Hemoglobin 9.4 g/dl (12.0-16.0)
[2022-05-30] MEDS: FERROUS SULFATE 325 MG TAB PO SCH (08:47)
[2022-05-30] MEDS: DOCUSATE SODIUM 100 MG CAP PO SCH ×2 (08:47→21:14)
[2022-05-30] MEDS: SIMETHICONE 80 MG CHEW PO SCH ×4 (08:48→21:14)
[2022-05-30] MEDS: SERTRALINE HCL 50 MG TABLET PO SCH (08:48)
[2022-05-30] MEDS: POLYETHYLENE (MIRALAX) 17 GM PACK PO SCH (08:48)
[2022-05-30] MEDS: PANTOprazole 40 MG TAB PO SCH (08:48)
[2022-05-30] MEDS: PRENATAL VITAMIN 1 TAB PO SCH (09:00)
--- NOTE | 2022-05-30 09:08 | Progress Note ---
Date of Service May 30, 2022 Assessment & Plan Admission and Anticipated Discharge Date Admission Date: May 26, 2022 Subjective doing well. wants to stay till tomorrow. OOB and eating well. passing gas Physical Exam Constitutional: WD/WN, vitals as above Gastrointestinal (Abdomen): Inspection/Auscultation: abdomen normal to inspection and + abdominal surgical incision abdomen soft and non-tender. fundus firm Musculoskeletal: Extremities: extremities normal to inspection Skin: no rashes, warm and dry Neurologic: patellar DTR's 2+ bilat, sensation intact Psychiatric: A+Ox3, euthymic affect Results & Data ([facility]) Vital Signs (Past 12 Hours) Vital Signs Temp Pulse Resp BP Pulse Ox O2 Del Method 05/30/22 08:00 36.8 C 85 18 103/69 99 Room Air 05/30/22 00:45 36.8 C 67 16 94/59 L 97 Room Air Laboratory Results 05/26/22 05/26/22 05/26/22 19:38 19:38 20:05 WBC 13.90 H RBC 3.37 L Hgb 10.7 L Hct 30.9 L MCV 91.7 MCH 31.8 MCHC 34.6 RDW Std Deviation 46.5 H RDW Coeff of Junior 13.8 Plt Count 208 MPV 10.4 Immature Gran % (Auto) Neut % (Auto) Lymph % (Auto) [place] % (Auto) Eos % (Auto) Baso % (Auto) Neut # (Auto) Lymph # (Auto) [place] # (Auto) Eos # (Auto) Baso # (Auto) Immature Gran # (Auto) Sodium 136 Potassium 3.8 Chloride 106 Carbon Dioxide 22 Anion Gap 8 BUN 22 Creatinine 1.27 H Est Cr Clr Drug Dosing 60.2 Est GFR ( Amer) 61.1 Est GFR (Non-Af Amer) 52.7 BUN/Creatinine Ratio 17.3 Glucose 114 H POC Glucose Calcium 9.0 Total Bilirubin 0.3 AST 16 ALT 24 Alkaline Phosphatase 93 Total Protein 6.4 Albumin 3.3 L Globulin 3.1 Albumin/Globulin Ratio 1.1 SARS-CoV-2, RNA, NAAT NEGATIVE 05/26/22 05/27/22 05/27/22 21:17 07:59 12:01 WBC RBC Hgb Hct MCV MCH MCHC RDW Std Deviation RDW Coeff of Junior Plt Count MPV Immature Gran % (Auto) Neut % (Auto) Lymph % (Auto) [place] % (Auto) Eos % (Auto) Baso % (Auto) Neut # (Auto) Lymph # (Auto) [place] # (Auto) Eos # (Auto) Baso # (Auto) Immature Gran # (Auto) Sodium Potassium Chloride Carbon Dioxide Anion Gap BUN Creatinine Est Cr Clr Drug Dosing Est GFR ( Amer) Est GFR (Non-Af Amer) BUN/Creatinine Ratio Glucose POC Glucose 95 76 86 Calcium Total Bilirubin AST ALT Alkaline Phosphatase Total Protein Albumin Globulin Albumin/Globulin Ratio SARS-CoV-2, RNA, NAAT 05/27/22 05/27/22 05/28/22 18:48 21:00 09:09 WBC RBC Hgb Hct MCV MCH MCHC RDW Std Deviation RDW Coeff of Junior Plt Count MPV Immature Gran % (Auto) Neut % (Auto) Lymph % (Auto) [place] % (Auto) Eos % (Auto) Baso % (Auto) Neut # (Auto) Lymph # (Auto) [place] # (Auto) Eos # (Auto) Baso # (Auto) Immature Gran # (Auto) Sodium Potassium Chloride Carbon Dioxide Anion Gap BUN Creatinine Est Cr Clr Drug Dosing Est GFR ( Amer) Est GFR (Non-Af Amer) BUN/Creatinine Ratio Glucose POC Glucose 114 H 126 H 161 H Calcium Total Bilirubin AST ALT Alkaline Phosphatase Total Protein Albumin Globulin Albumin/Globulin Ratio SARS-CoV-2, RNA, NAAT 05/28/22 05/28/22 05/28/22 13:31 14:01 18:30 WBC RBC Hgb Hct MCV MCH MCHC RDW Std Deviation RDW Coeff of Junior Plt Count MPV Immature Gran % (Auto) Neut % (Auto) Lymph % (Auto) [place] % (Auto) Eos % (Auto) Baso % (Auto) Neut # (Auto) Lymph # (Auto) [place] # (Auto) Eos # (Auto) Baso # (Auto) Immature Gran # (Auto) Sodium Potassium Chloride Carbon Dioxide Anion Gap BUN Creatinine Est Cr Clr Drug Dosing Est GFR ( Amer) Est GFR (Non-Af Amer) BUN/Creatinine Ratio Glucose POC Glucose 79 98 96 Calcium Total Bilirubin AST ALT Alkaline Phosphatase Total Protein Albumin Globulin Albumin/Globulin Ratio SARS-CoV-2, RNA, NAAT 05/29/22 05/30/22 09:25 07:05 WBC 13.86 H RBC 3.07 L Hgb 9.8 L 9.4 L Hct 28.3 L 27.4 L MCV 92.2 MCH 31.9 MCHC 34.6 RDW Std Deviation 46.5 H RDW Coeff of Junior 13.8 Plt Count 174 MPV 10.3 Immature Gran % (Auto) 1.5 Neut % (Auto) 77.9 Lymph % (Auto) 13.2 [place] % (Auto) 6.4 Eos % (Auto) 0.7 Baso % (Auto) 0.3 Neut # (Auto) 10.79 H Lymph # (Auto) 1.83 [place] # (Auto) 0.89 H Eos # (Auto) 0.10 Baso # (Auto) 0.04 Immature Gran # (Auto) 0.21 H Sodium Potassium Chloride Carbon Dioxide Anion Gap BUN Creatinine Est Cr Clr Drug Dosing Est GFR ( Amer) Est GFR (Non-Af Amer) BUN/Creatinine Ratio Glucose POC Glucose Calcium Total Bilirubin AST ALT Alkaline Phosphatase Total Protein Albumin Globulin Albumin/Globulin Ratio SARS-CoV-2, RNA, NAAT
[2022-05-31] MEDS: IBUPROFEN 600 MG TAB PO PRN ×2 (02:10→07:19)
[2022-05-31] MEDS: SIMETHICONE 80 MG CHEW PO SCH (07:18)
[2022-05-31] MEDS: DOCUSATE SODIUM 100 MG CAP PO SCH (07:18)
[2022-05-31] MEDS: POLYETHYLENE (MIRALAX) 17 GM PACK PO SCH (07:18)
[2022-05-31] MEDS: PRENATAL VITAMIN 1 TAB PO SCH (07:19)
[2022-05-31] MEDS: FERROUS SULFATE 325 MG TAB PO SCH (07:19)
[2022-05-31] MEDS: oxyCODONE/ACETAMINOPHEN 5mg/325mg TAB PO PRN (07:19)
[2022-05-31] MEDS: SERTRALINE HCL 50 MG TABLET PO SCH (07:43)
[2022-05-31] MEDS: PANTOprazole 40 MG TAB PO SCH (07:43)
--- NOTE | 2022-05-31 08:19 | Obstetrical Progress Note ---
Date of Service May 31, 2022 Assessment & Plan (1) Normal course: Continue routine PP course Dc home today with 1 week follow up Subjective Ambulation: ambulating normally Voiding: no voiding problems Passing Gas:: Yes Diet Tolerance:: regular diet Lochia:: Small Feeding Type:: breast feeding Current Pain Level(1-10): 2 Doing well, bonding with baby. Only complaint is swelling in feet that improves with lifting feet up Physical Exam Constitutional WD/WN, vitals as above Respiratory normal respiratory effort, lungs clear to auscultation Cardiovascular RRR, no murmur, no edema Gastrointestinal (Abdomen) normal bowel sounds, soft, nontender, no hepatosplenomegaly KAM dressing in place, clean dry Results & Data ([facility]) Vital Signs (Past 12 Hours) Vital Signs Temp Pulse Resp BP Pulse Ox O2 Del Method 05/31/22 07:13 36.6 C 80 18 127/79 100 Room Air 05/31/22 01:00 36.6 C 88 18 112/75 99 Room Air
== END 2022-05-31 11:00 | disposition home or self-care (01) | DRG 787 ==
LOC: OPB 16:35 → 4S1 16:38 → 4E2 05-29 01:16